=== PATIENT | male | born 1930 | race Caucasian/White ===

== ENCOUNTER 2017-04-11 11:03 | Inpatient (IN) | payer MEDICARE ==
[~2017-04-11] VITALS: Ht 175.3 cm; Wt 62.5 kg
[~2017-04-11 11:03] MED LIST: LOVA10TA PO; [UNRECOGNIZED DRUG - REMARK] PO
[2017-04-11] MEDS ORDERED: SODIUM CHLORIDE FLUSH 10ML SYR IVF ONE (11:30)
[2017-04-11] MEDS ORDERED: ERYTHROMYCIN OPHTH 0.5%, 1GM LEFTEYE ONE (11:30)
[2017-04-11] MEDS ORDERED: SODIUM CHLORIDE 0.9% 1,000ML IVBOLUS ONE (11:30)
[2017-04-11] MEDS ORDERED: DILTIAZEM 5 MG/ML, 5ML IVPush ONE (11:30)
[2017-04-11 11:58] LABS: RAPID INFLUENZA A Negative (Negative); RAPID INFLUENZA B Negative (Negative)
[2017-04-11] MEDS ORDERED: DILTIAZEM 5 MG/ML, 5ML ONE (12:27)
[2017-04-11 12:34] LABS: BASOPHILS # (AUTO) 0.02 x10^3/uL (0-0.1); BASOPHILS % (AUTO) 0 % (0-1); EOSINOPHILS # (AUTO) 0.07 x10^3/uL (0-0.4); EOSINOPHILS % (AUTO) 1 % (1-7); LYMPHOCYTES # (AUTO) 0.75 x10^3/uL (1-3.4); LYMPHOCYTES % (AUTO) 10 % (22-44); MD NO; MEAN CORPUSCULAR HEMOGLOBIN 31.8 pg (27.5-34.5); MEAN CORPUSCULAR HGB CONC 33.8 g/dL (33.2-36.2); MEAN CORPUSCULAR VOLUME 94.1 fL (81-97); MEAN PLATELET VOLUME 9.6 fL (7.4-10.4); MONOCYTES # (AUTO) 0.84 x10^3/uL (0.2-0.8); MONOCYTES % (AUTO) 11 % (2-9); NEUTROPHILS # (AUTO) 5.91 x10^3/uL (1.8-6.8); NEUTROPHILS % (AUTO) 78 % (42-75); PLATELET COUNT 122 x10^3/uL (130-400); RED BLOOD COUNT 3.26 x10^6/uL (4.38-5.82); RED CELL DISTRIBUTION WIDTH 14.1 % (9.4-14.8)
[2017-04-11] MEDS ORDERED: LOVA20TA2 PO (12:35)
[2017-04-11] MEDS ORDERED: LOSA100T6 PO (12:35)
[2017-04-11] MEDS ORDERED: CARV3.122 PO (12:37)
[2017-04-11] MEDS ORDERED: TAMS0.4C2 PO (12:37)
[2017-04-11 12:45] LABS: INTERNATIONAL NORMALIZED RATIO 1.16 (0.93-1.1); PROTHROMBIN TIME 11.9 Seconds (9.6-11.5)
[2017-04-11 12:47] LABS: ALANINE AMINOTRANSFERASE 16 U/L (12-78); ALBUMIN 2.6 g/dL (3.4-5.0); ANION GAP 12 mmol/L (5-15); CALCIUM 7.7 mg/dL (8.5-10.1); CHLORIDE 111 mmol/L (98-107); CREATININE 3.04 mg/dL (0.7-1.3)
[2017-04-11 12:51] LABS: ALKALINE PHOSPHATASE 66 U/L (45-117); BILIRUBIN,TOTAL 0.8 mg/dL (0.2-1.0); TOTAL PROTEIN 6.2 g/dL (6.4-8.2); TROPONIN I 0.018 ng/mL (0.000-0.045)
[2017-04-11] MEDS ORDERED: CEFTRIAXONE PMX 1GM/50ML 50 ML ONE ×2 (12:59→14:09)
[2017-04-11] MEDS ORDERED: SODIUM CHLORIDE 0.9% 1,000 ML IV SCH (13:34)
[2017-04-11] MEDS ORDERED: ACETAMINOPHEN 325 MG TABLET PO PRN (14:00)
[2017-04-11] MEDS ORDERED: PHARMACY MAY ADJ FOR RENAL FX MC PRN (14:00)
[2017-04-11] MEDS: CEFTRIAXONE PMX 1GM/50ML 50 ML IVPB ONE ×2 (14:07→14:45)
[2017-04-11] MEDS ORDERED: DILTIAZEM 5 MG/ML, 5ML IVPush STA (14:16)
[2017-04-11 14:33] VITALS: BP 148/69
[2017-04-11 14:35] LABS: MICROSCOPIC INDICATED
[2017-04-11 14:49] LABS: CULTURE INDICATED? NO
[2017-04-11] MEDS ORDERED: CEFTRIAXONE PMX 1GM/50ML 50 ML IVPB SCH (15:00)
[2017-04-11] MEDS: CEFTRIAXONE 1,000 MG in DEXTROSE 5% 50 ML IVPB SCH (15:01)
[2017-04-11] MEDS ORDERED: PNEUMOCOCCAL 23 VACCINE IM-VACC ONE (15:30)
[2017-04-11] MEDS: DOXYCYCLINE 100 MG in DEXTROSE 5% 250 ML IV SCH (15:50)
[2017-04-11] MEDS ORDERED: DILTIAZEM 30 MG TABLET PO SCH (16:00)
[2017-04-11] MEDS: METOPROLOL TARTRATE 25 MG TABLET PO SCH (17:15)
[2017-04-11 18:50] LABS: TROPONIN I 0.737 ng/mL (0.000-0.045)
[2017-04-11 20:09] VITALS: BP 162/84
[2017-04-11] MEDS: LOVASTATIN 20 MG TABLET PO SCH (20:15)
[2017-04-11] MEDS ORDERED: TAMSULOSIN 0.4 MG CAP.ER.24H PO SCH (21:00)
[2017-04-12 01:07] LABS: ANION GAP 8 mmol/L (5-15); CALCIUM 7.9 mg/dL (8.5-10.1); CHLORIDE 114 mmol/L (98-107); CREATININE 2.78 mg/dL (0.7-1.3)
[2017-04-12 01:09] LABS: TROPONIN I 0.964 ng/mL (0.000-0.045)
[2017-04-12] MEDS: SODIUM CHLORIDE 0.9% 1,000 ML IV SCH (02:35)
[2017-04-12] MEDS: DOXYCYCLINE 100 MG in DEXTROSE 5% 250 ML IV SCH ×2 (03:52→15:43)
[2017-04-12 03:54] VITALS: BP 170/72
[2017-04-12 06:58] VITALS: BP 192/83
[2017-04-12] MEDS: METOPROLOL TARTRATE 25 MG TABLET PO SCH ×2 (07:05→17:46)
[2017-04-12 07:38] LABS: TROPONIN I 0.772 ng/mL (0.000-0.045)
[2017-04-12] MEDS ORDERED: CARVEDILOL 3.125 MG TABLET PO SCH (09:00)
[2017-04-12] MEDS: TAMSULOSIN 0.4 MG CAP.ER.24H PO SCH (10:35)
[2017-04-12 11:16] LABS: CHLORIDE,URINE RANDOM 48 mmol/L; POTASSIUM,URINE RANDOM 27 mmol/L; SODIUM,URINE RANDOM 55 mmol/L
[2017-04-12 11:19] VITALS: BP_SYST 199; BP_SYST 205; BP_DIAS 74; BP_DIAS 81
[2017-04-12] MEDS: GUAIFENESIN 200 MG TABLET PO SCH ×3 (11:49→21:38)
[2017-04-12] MEDS ORDERED: hydrALAzine 20 MG/ML, 1ML IV ONE (12:00)
[2017-04-12] MEDS ORDERED: AMLODIPINE 5 MG TABLET PO ONE (12:30)
[2017-04-12] MEDS ORDERED: SODIUM CHLORIDE 0.9% 1,000 ML IV SCH (13:34)
[2017-04-12 14:55] VITALS: BP 197/83
[2017-04-12] MEDS: CEFTRIAXONE 1,000 MG in DEXTROSE 5% 50 ML IVPB SCH (15:15)
[2017-04-12 16:37] VITALS: BP 197/78
[2017-04-12] MEDS: hydrALAzine 20 MG/ML, 1ML IV PRN (16:38)
[2017-04-12 18:43] VITALS: BP 175/85
[2017-04-12] MEDS: LOVASTATIN 20 MG TABLET PO SCH (21:00)
[2017-04-13] VITALS (7 sets, daily range): BP systolic 165–210; BP diastolic 72–89
[2017-04-13] MEDS: hydrALAzine 20 MG/ML, 1ML IV PRN (00:53)
[2017-04-13] MEDS: SODIUM CHLORIDE 0.9% 1,000 ML IV SCH ×2 (02:30→11:37)
[2017-04-13] MEDS: DOXYCYCLINE 100 MG in DEXTROSE 5% 250 ML IV SCH ×2 (03:52→16:48)
[2017-04-13 05:25] LABS: ALBUMIN 2.7 g/dL (3.4-5.0); CALCIUM 8.4 mg/dL (8.5-10.1); CHLORIDE 111 mmol/L (98-107)
[2017-04-13 05:34] LABS: % IRON SATURATION 15 % (20-55); ALANINE AMINOTRANSFERASE 23 U/L (12-78); ALKALINE PHOSPHATASE 81 U/L (45-117); ANION GAP 10 mmol/L (5-15); BILIRUBIN,TOTAL 0.6 mg/dL (0.2-1.0); CREATINE KINASE, TOTAL 162 U/L (39-308); IRON LEVEL 36 mcg/dL (65-175); TOTAL IRON BINDING CAPACITY 243 mcg/dL (250-450); TOTAL PROTEIN 6.7 g/dL (6.4-8.2)
[2017-04-13] MEDS: GUAIFENESIN 200 MG TABLET PO SCH ×4 (06:37→22:27)
[2017-04-13] MEDS: METOPROLOL TARTRATE 25 MG TABLET PO SCH ×2 (06:38→16:47)
[2017-04-13] MEDS: TAMSULOSIN 0.4 MG CAP.ER.24H PO SCH (07:26)
[2017-04-13] MEDS ORDERED: AMLODIPINE 5 MG TABLET PO SCH ×2 (09:00→21:00)
[2017-04-13] MEDS ORDERED: ERGOCALCIFEROL 50,000 UNIT CAPSULE PO SCH (09:30)
[2017-04-13] MEDS ORDERED: AMLODIPINE 5 MG TABLET PO ONE (12:30)
[2017-04-13] MEDS: ASPIRIN 81 MG TABLET EC PO SCH (15:58)
[2017-04-13] MEDS: CEFTRIAXONE 1,000 MG in DEXTROSE 5% 50 ML IVPB SCH (15:58)
[2017-04-13] MEDS: LOVASTATIN 20 MG TABLET PO SCH (21:00)
[2017-04-13] MEDS: CARVEDILOL 6.25 MG TABLET PO SCH (22:27)
[2017-04-14] MEDS: DOXYCYCLINE 100 MG in DEXTROSE 5% 250 ML IV SCH ×2 (03:13→16:35)
[2017-04-14 03:21] VITALS: BP 174/94
[2017-04-14 05:22] LABS: ANION GAP 8 mmol/L (5-15); CALCIUM 8.4 mg/dL (8.5-10.1); CHLORIDE 108 mmol/L (98-107); CREATININE 1.84 mg/dL (0.7-1.3)
[2017-04-14] MEDS: CARVEDILOL 6.25 MG TABLET PO SCH (06:23)
[2017-04-14] MEDS: ASPIRIN 81 MG TABLET EC PO SCH (06:23)
[2017-04-14] MEDS: GUAIFENESIN 200 MG TABLET PO SCH ×4 (06:23→20:25)
[2017-04-14 08:22] VITALS: BP 188/87
[2017-04-14] MEDS: TAMSULOSIN 0.4 MG CAP.ER.24H PO SCH (08:50)
[2017-04-14] MEDS: AMLODIPINE 5 MG TABLET PO SCH (08:50)
[2017-04-14 12:36] VITALS: BP 155/83
[2017-04-14] MEDS: LOSARTAN 50MG TABLET PO SCH (12:37)
[2017-04-14 12:53] VITALS: BP 161/83
[2017-04-14] MEDS: CEFTRIAXONE 1,000 MG in DEXTROSE 5% 50 ML IVPB SCH (15:32)
[2017-04-14 18:45] VITALS: BP 135/65
[2017-04-14] MEDS: SODIUM CHLORIDE 0.9% 1,000 ML IV SCH (20:00)
[2017-04-14] MEDS: LOVASTATIN 20 MG TABLET PO SCH (20:25)
[2017-04-15 02:00] VITALS: BP 164/86
[2017-04-15] MEDS: DOXYCYCLINE 100 MG in DEXTROSE 5% 250 ML IV SCH (05:00)
[2017-04-15] MEDS ORDERED: AMOX1TAB64 PO (06:45)
[2017-04-15] MEDS ORDERED: ASPI-621 PO (06:45)
[2017-04-15] MEDS ORDERED: ERGO500017 PO (06:45)
[2017-04-15] MEDS ORDERED: AMLO5TAB2 PO (06:45)
[2017-04-15] MEDS ORDERED: LOVA20TA2 PO (06:45)
[2017-04-15] MEDS ORDERED: AMOXICILLIN/CLAV 500-125MG TABLET PO SCH (07:00)
[2017-04-15] MEDS ORDERED: AMOX1TAB61 PO (07:49)
[2017-04-15 08:43] VITALS: BP 154/78
[2017-04-15] MEDS ORDERED: DOXYCYCLINE 100MG TABLET PO SCH (09:00)
[2017-04-15] MEDS: LOSARTAN 50MG TABLET PO SCH (09:39)
[2017-04-15] MEDS: AMLODIPINE 5 MG TABLET PO SCH (09:40)
[2017-04-15] MEDS: ASPIRIN 81 MG TABLET EC PO SCH (09:40)
[2017-04-15] MEDS: TAMSULOSIN 0.4 MG CAP.ER.24H PO SCH (09:40)
[2017-04-15] MEDS: GUAIFENESIN 200 MG TABLET PO SCH (09:40)
== END 2017-04-15 12:38 | disposition home or self-care (01) | DRG 682 ==
LOC: EDSEX 11:03 → EDBD 11:03 → MERGE 11:03 → ED 13:44 → 5SO 14:38
PROVIDERS: ADMIT Family Medicine; ATTEND Family Medicine
DX: N17.9 Acute kidney failure, unspecified (principal); E43 Unspecified severe protein-calorie malnutrition; J15.9 Unspecified bacterial pneumonia; E87.2 Acidosis; I48.91 Unspecified atrial fibrillation; D64.9 Anemia, unspecified; E86.0 Dehydration; I69.320 Aphasia following cerebral infarction; W19.XXXA Unspecified fall, initial encounter; E55.9 Vitamin D deficiency, unspecified; E78.5 Hyperlipidemia, unspecified; H10.32 Unspecified acute conjunctivitis, left eye; I12.9 Hypertensive chronic kidney disease with stage 1 through stage 4 chronic kidney disease, or unspecified chronic kidney disease; I25.10 Atherosclerotic heart disease of native coronary artery without angina pectoris; M10.9 Gout, unspecified; N18.9 Chronic kidney disease, unspecified; N40.0 Benign prostatic hyperplasia without lower urinary tract symptoms; R09.02 Hypoxemia; S00.81XA Abrasion of other part of head, initial encounter; Y92.009 Unspecified place in unspecified non-institutional (private) residence as the place of occurrence of the external cause; Z79.899 Other long term (current) drug therapy; Z79.82 Long term (current) use of aspirin; Z68.20 Body mass index [BMI] 20.0-20.9, adult
CPT/HCPCS: 36415; 70450; 71010; 76770; 80048; 80053; 81001; 82306; 82436; 82550; 82728; 83540; 83550; 83605; 83735; 83970; 84100; 84133; 84300; 84484; 85025; 85610; 87040; 87400; 90732; 93005; 93306; 96361; 96374; J0696; J7060; J0360; J7030

== ENCOUNTER 2019-04-08 17:01 | Inpatient (IN) | payer MEDICARE ==
[~2019-04-08] VITALS: Ht 170.2 cm; Wt 63.5 kg
[~2019-04-08 17:01] MED LIST changes: +AMLO-150 PO; +AMOX1TAB61 PO; +AMOX1TAB64 PO; +ASPI81TA45 PO; +CARV3.122 PO; +ERGO500017 PO; +LOSA100T14 PO; +LOVA20TA2 PO; +TAMS0.4C2 PO
[2019-04-08] MEDS ORDERED: SODIUM CHLORIDE FLUSH 10ML SYR IVF ONE (18:00)
--- NOTE | 2019-04-08 18:07 | NUR ---
PT CAME IN REPORTING THAT HE FELL YESTERDAY AT HOME AND THE PAIN HAS GOTTEN WORSE TODAY. COMPLAINED OF NECK PAIN AND HAS BEEN PLACED IN A C COLLAR. IV STARTED. DAUGHTER IS BEDSIDE. PT HAS HX OF STROKE AND HTN.
[2019-04-08 18:10] LABS: BASOPHILS # (AUTO) 0.01 x10^3/uL (0-0.1); BASOPHILS % (AUTO) 0 % (0-1); EOSINOPHILS # (AUTO) 0.09 x10^3/uL (0-0.4); EOSINOPHILS % (AUTO) 1 % (1-7); LYMPHOCYTES # (AUTO) 1.24 x10^3/uL (1-3.4); LYMPHOCYTES % (AUTO) 14 % (22-44); MD NO; MEAN CORPUSCULAR HEMOGLOBIN 31.6 pg (27.5-34.5); MEAN CORPUSCULAR HGB CONC 31.9 g/dL (33.2-36.2); MEAN CORPUSCULAR VOLUME 98.9 fL (81-97); MEAN PLATELET VOLUME 8.7 fL (7.4-10.4); MONOCYTES # (AUTO) 0.72 x10^3/uL (0.2-0.8); MONOCYTES % (AUTO) 8 % (2-9); NEUTROPHILS # (AUTO) 6.63 x10^3/uL (1.8-6.8); NEUTROPHILS % (AUTO) 76 % (42-75); PLATELET COUNT 194 x10^3/uL (130-400); RED BLOOD COUNT 3.53 x10^6/uL (4.38-5.82); RED CELL DISTRIBUTION WIDTH 13.5 % (9.4-14.8)
[2019-04-08 18:21] LABS: INTERNATIONAL NORMALIZED RATIO 1.1 (0.93-1.1); PROTHROMBIN TIME 11.5 Seconds (9.6-11.5)
[2019-04-08 18:23] LABS: ALANINE AMINOTRANSFERASE 67 U/L (12-78); ALBUMIN 3.4 g/dL (3.4-5.0); ANION GAP 8 mmol/L (5-15); CHLORIDE 109 mmol/L (98-107); CREATININE 2.37 mg/dL (0.7-1.3)
[2019-04-08 18:26] LABS: ALKALINE PHOSPHATASE 98 U/L (45-117); BILIRUBIN,TOTAL 0.8 mg/dL (0.2-1.0); CREATINE KINASE, TOTAL 149 U/L (39-308); TOTAL PROTEIN 7.7 g/dL (6.4-8.2)
--- NOTE | 2019-04-08 18:39 | NUR ---
PT AT CT
[2019-04-08] MEDS ORDERED: SODIUM CHLORIDE 0.9% 1,000ML IVBOLUS ONE (19:30)
[2019-04-08 19:42] LABS: MICROSCOPIC AUTO
[2019-04-08 19:54] LABS: CULTURE INDICATED? NO
--- NOTE | 2019-04-08 20:06 | NUR ---
RIVKA RICHARDSON, TOOK PT FOR A "ROAD TEST" AND DETEREMINED PT HAS UNSTEADY GAIT AND IS A HIGH FALL RISK. DR. ZUNIGA WANTS HIM TO BE ADMITTED TONIGHT.
[2019-04-08] MEDS ORDERED: NS + 20MEQ KCL 1,000 ML IV SCH (20:18)
[2019-04-08] MEDS ORDERED: ONDANSETRON 2MG/ML, 2ML IVPush PRN (20:30)
[2019-04-08] MEDS ORDERED: morphine SULFATE 10 MG/ML, 1ML IVPush PRN (20:30)
[2019-04-08] MEDS ORDERED: CYCLOBENZAPRINE 10 MG TABLET PO PRN (20:30)
[2019-04-08] MEDS ORDERED: ENALAPRILAT 1.25 MG/ML, 2ML IVPush PRN (20:30)
[2019-04-08] MEDS ORDERED: POLYETHYLENE GLYCOL 17 GM PACKET PO PRN (20:30)
[2019-04-08] MEDS ORDERED: HYDROcodone/APAP 5/325 TABLET PO PRN (20:30)
[2019-04-08] MEDS ORDERED: ONDANSETRON ODT 4 MG PO PRN (20:30)
[2019-04-08] MEDS ORDERED: ACETAMINOPHEN 325 MG TABLET PO PRN (20:30)
[2019-04-08] MEDS ORDERED: DOCUSATE 100 MG CAPSULE PO PRN (20:30)
[2019-04-08] MEDS ORDERED: LABETALOL 5MG/ML, 20ML IVPush PRN (20:30)
[2019-04-08] MEDS ORDERED: LOSA1TAB22 PO (20:47)
[2019-04-08] MEDS ORDERED: AMLO10TA8 PO (20:47)
--- NOTE | 2019-04-08 20:51 | NUR ---
PT REPORTS "NO PAIN"
[2019-04-08] MEDS: HEPARIN 5,000 UNITS/ML, 1ML SQ SCH (23:21)
[2019-04-08] MEDS: NS + 20MEQ KCL 1,000 ML IV SCH (23:21)
[2019-04-09 02:00] VITALS: BP 168/59
[2019-04-09 05:42] LABS: BASOPHILS # (AUTO) 0.01 x10^3/uL (0-0.1); BASOPHILS % (AUTO) 0 % (0-1); EOSINOPHILS % (AUTO) 2 % (1-7); LYMPHOCYTES # (AUTO) 1.41 x10^3/uL (1-3.4); LYMPHOCYTES % (AUTO) 23 % (22-44); MD NO; MEAN CORPUSCULAR HEMOGLOBIN 31.9 pg (27.5-34.5); MEAN CORPUSCULAR HGB CONC 32.4 g/dL (33.2-36.2); MEAN CORPUSCULAR VOLUME 98.7 fL (81-97); MEAN PLATELET VOLUME 9.1 fL (7.4-10.4); MONOCYTES # (AUTO) 0.55 x10^3/uL (0.2-0.8); MONOCYTES % (AUTO) 9 % (2-9); NEUTROPHILS # (AUTO) 4.15 x10^3/uL (1.8-6.8); NEUTROPHILS % (AUTO) 67 % (42-75); PLATELET COUNT 162 x10^3/uL (130-400); RED BLOOD COUNT 3.15 x10^6/uL (4.38-5.82); RED CELL DISTRIBUTION WIDTH 13.3 % (9.4-14.8)
[2019-04-09 05:49] LABS: ANION GAP 5 mmol/L (5-15); CALCIUM 8.9 mg/dL (8.5-10.1); CHLORIDE 114 mmol/L (98-107); CREATININE 1.86 mg/dL (0.7-1.3)
[2019-04-09] MEDS: HEPARIN 5,000 UNITS/ML, 1ML SQ SCH ×3 (06:24→23:53)
[2019-04-09 07:28] VITALS: BP 176/70
[2019-04-09] MEDS ORDERED: LOSARTAN 50MG TABLET PO SCH (09:00)
[2019-04-09] MEDS: AMLODIPINE 10 MG TAB PO SCH (10:00)
[2019-04-09] MEDS: HYDROCHLOROTHIAZIDE 25 MG TABLET PO SCH (10:00)
[2019-04-09] MEDS: NS + 20MEQ KCL 1,000 ML IV SCH (11:23)
[2019-04-09 11:49] VITALS: BP 154/79
[2019-04-09] MEDS: LOSARTAN 25MG TABLET PO SCH (11:51)
[2019-04-09 13:25] VITALS: BP 154/88
[2019-04-09 20:03] VITALS: BP 130/64
[2019-04-09] MEDS: LOVASTATIN 20 MG TABLET PO SCH (21:47)
[2019-04-09] MEDS: TAMSULOSIN 0.4 MG CAP.ER.24H PO SCH (21:47)
[2019-04-10] MEDS: NS + 20MEQ KCL 1,000 ML IV SCH (00:18)
[2019-04-10 02:06] VITALS: BP 167/84
[2019-04-10 05:24] LABS: BASOPHILS % (AUTO) 0 % (0-1); EOSINOPHILS # (AUTO) 0.15 x10^3/uL (0-0.4); EOSINOPHILS % (AUTO) 2 % (1-7); LYMPHOCYTES # (AUTO) 1.28 x10^3/uL (1-3.4); LYMPHOCYTES % (AUTO) 14 % (22-44); MD NO; MEAN CORPUSCULAR HEMOGLOBIN 30.9 pg (27.5-34.5); MEAN CORPUSCULAR HGB CONC 32.1 g/dL (33.2-36.2); MEAN CORPUSCULAR VOLUME 96.4 fL (81-97); MONOCYTES # (AUTO) 0.88 x10^3/uL (0.2-0.8); MONOCYTES % (AUTO) 10 % (2-9); NEUTROPHILS # (AUTO) 6.75 x10^3/uL (1.8-6.8); NEUTROPHILS % (AUTO) 75 % (42-75); PLATELET COUNT 164 x10^3/uL (130-400); RED CELL DISTRIBUTION WIDTH 13.3 % (9.4-14.8)
[2019-04-10 05:29] LABS: ANION GAP 7 mmol/L (5-15); CALCIUM 8.6 mg/dL (8.5-10.1); CHLORIDE 112 mmol/L (98-107)
[2019-04-10 05:31] LABS: CREATININE 1.87 mg/dL (0.7-1.3)
[2019-04-10 08:19] VITALS: BP 115/65
[2019-04-10] MEDS ORDERED: LOSARTAN 25MG TABLET PO SCH (09:00)
[2019-04-10] MEDS: LOSARTAN 25MG TABLET PO SCH (09:02)
[2019-04-10] MEDS: HEPARIN 5,000 UNITS/ML, 1ML SQ SCH ×3 (09:02→23:30)
[2019-04-10] MEDS: AMLODIPINE 10 MG TAB PO SCH (09:03)
[2019-04-10] MEDS: HYDROCHLOROTHIAZIDE 25 MG TABLET PO SCH (09:03)
[2019-04-10] MEDS ORDERED: ACET325T26 PO (11:09)
[2019-04-10 12:00] VITALS: BP 154/80
[2019-04-10 18:28] VITALS: BP 96/59
[2019-04-10 20:29] VITALS: BP 158/76
[2019-04-10] MEDS: TAMSULOSIN 0.4 MG CAP.ER.24H PO SCH (20:31)
[2019-04-10] MEDS: LOVASTATIN 20 MG TABLET PO SCH (20:31)
[2019-04-11 00:41] VITALS: BP 130/70
[2019-04-11 07:10] VITALS: BP 105/66
[2019-04-11 07:16] VITALS: BP 137/69
[2019-04-11] MEDS: HEPARIN 5,000 UNITS/ML, 1ML SQ SCH (08:06)
[2019-04-11] MEDS: AMLODIPINE 10 MG TAB PO SCH (08:06)
[2019-04-11] MEDS: HYDROCHLOROTHIAZIDE 25 MG TABLET PO SCH (08:06)
[2019-04-11] MEDS: LOSARTAN 25MG TABLET PO SCH (08:06)
== END 2019-04-11 13:20 | DRG 184 ==
LOC: ED 18:22 → EDIP 20:19 → 4NE 21:20
PROVIDERS: ADMIT Family Medicine; ATTEND Family Medicine
DX: S22.41XA Multiple fractures of ribs, right side, initial encounter for closed fracture (principal); R47.01 Aphasia; N17.9 Acute kidney failure, unspecified; D64.9 Anemia, unspecified; E78.5 Hyperlipidemia, unspecified; E86.0 Dehydration; I12.9 Hypertensive chronic kidney disease with stage 1 through stage 4 chronic kidney disease, or unspecified chronic kidney disease; N18.9 Chronic kidney disease, unspecified; N40.0 Benign prostatic hyperplasia without lower urinary tract symptoms; J32.9 Chronic sinusitis, unspecified; Z66 Do not resuscitate; W18.30XA Fall on same level, unspecified, initial encounter; Y92.009 Unspecified place in unspecified non-institutional (private) residence as the place of occurrence of the external cause; Y93.89 Activity, other specified; Y99.8 Other external cause status; I69.320 Aphasia following cerebral infarction
CPT/HCPCS: 36415; 70450; 71045; 71250; 72125; 72131; 72170; 80048; 80053; 81001; 82550; 85025; 85610; 99285; G0378; J1644; J3480; J7030

== ENCOUNTER 2019-06-09 14:31 | Emergency (ER) | payer MEDICARE ==
[~2019-06-09] VITALS: Ht 175.3 cm; Wt 70.0 kg
[~2019-06-09 14:31] MED LIST changes: +ACET325T26 PO; +AMLO10TA8 PO; +LOSA1TAB22 PO
--- NOTE | 2019-06-09 14:53 | NUR ---
PT BIB [facility] AFTER HH WOUND NURSE NOTED A LOW BP IN THE 80'S. UPON [facility] ARRIVAL PT BP 130'S OVER 70'S, BP REMAINED STEADY THROUGH TRANSPORT. WOUND CARE NURSE ALSO EXPRESSES CONCERN OVER PRESSURE WOUNDS ON BILATERAL HEELS, THESE WOUNDS ARE UNDER HER WOUND CARE TREATMENT VIA HH AT THIS TIME, DRESSED AND COVERED UPON ARRIVAL. SCANT DRAINAGE NOTED, NO S/S OF INFECTION. SKIN SWEEP PERFORMED, NO OTHER SKIN ISSUES NOTED. PT ALERT, CALM AND COOPERATIVE. FAMILY IN BOUND, INCLUDING POA. CALL LIGHT IN REACH, PT PROVIDED WITH WATER AFTER VERBAL OK WITH PROVIDER. DENIES ANY FURTHER NEEDS AT THIS TIME.
[2019-06-09 15:12] LABS: BASOPHILS % (AUTO) 0 % (0-1); EOSINOPHILS # (AUTO) 0.43 x10^3/uL (0-0.4); EOSINOPHILS % (AUTO) 4 % (1-7); LYMPHOCYTES # (AUTO) 1.08 x10^3/uL (1-3.4); LYMPHOCYTES % (AUTO) 10 % (22-44); MD NO; MEAN CORPUSCULAR HEMOGLOBIN 30.9 pg (27.5-34.5); MEAN CORPUSCULAR HGB CONC 32.8 g/dL (33.2-36.2); MEAN PLATELET VOLUME 7.9 fL (7.4-10.4); MONOCYTES # (AUTO) 0.47 x10^3/uL (0.2-0.8); MONOCYTES % (AUTO) 5 % (2-9); NEUTROPHILS % (AUTO) 81 % (42-75); PLATELET COUNT 252 x10^3/uL (130-400); RED BLOOD COUNT 2.91 x10^6/uL (4.38-5.82); RED CELL DISTRIBUTION WIDTH 14.5 % (9.4-14.8)
--- NOTE | 2019-06-09 15:14 | NUR ---
REPORT FROM [place] TINEO.
[2019-06-09 15:19] LABS: ANION GAP 6 mmol/L (5-15); CALCIUM 8.7 mg/dL (8.5-10.1); CHLORIDE 108 mmol/L (98-107); CREATININE 2.48 mg/dL (0.7-1.3)
[2019-06-09] MEDS ORDERED: SODIUM CHLORIDE FLUSH 10ML SYR IVF ONE (15:30)
[2019-06-09] MEDS ORDERED: SODIUM CHLORIDE 0.9% 1,000ML IVBOLUS ONE (15:30)
--- NOTE | 2019-06-09 15:34 | NUR ---
PT REPOSITIONED, SHEETS CHANGED, LEGS PADDED. PLAN FOR LITER NS BOLUS. AWAITING FAMILY. PT ALERT, ORIENTED TO SELF/PLACE/TIME, SOMEWHAT RAMBLING ON SITUATION. HEELS PADDED W/ FOAM (CAME IN WITH). BONY AREAS PADDED. CALL AMANDA IN REACH, FALL PRECS.
--- NOTE | 2019-06-09 16:33 | NUR ---
daughter melody in room. clinical screen done. lorena notified of family presence. plan liter bolus then dc. as
--- NOTE | 2019-06-09 16:44 | NUR ---
lorena was in room. case mgmt in room at moment plan pending. as
--- NOTE | 2019-06-09 17:09 | NUR ---
TO ORDER HOSPICE. 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 AWAITING RIDE.
--- NOTE | 2019-06-09 17:53 | NUR ---
PT TO BE DC VIA AMBULANCE COMING AT 181.
[2019-06-09 17:54] VITALS: BP 146/77
== END 2019-06-09 18:29 | disposition home or self-care (01) ==
LOC: ED 15:14
DX: R62.7 Adult failure to thrive (principal); D53.9 Nutritional anemia, unspecified; E86.0 Dehydration; Z68.22 Body mass index [BMI] 22.0-22.9, adult; I10 Essential (primary) hypertension; I48.91 Unspecified atrial fibrillation; E78.5 Hyperlipidemia, unspecified; Z86.73 Personal history of transient ischemic attack (TIA), and cerebral infarction without residual deficits
CPT/HCPCS: 36415; 80048; 82040; 85025; 96360; 96361; 99283; J7030

== ENCOUNTER 2019-06-13 18:46 | Inpatient (IN) | payer MEDICARE ==
[~2019-06-13] VITALS: Ht 170.2 cm; Wt 62.3 kg
[2019-06-13] MEDS ORDERED: VANCOMYCIN PER PHARMACY MC ONE (19:30)
[2019-06-13] MEDS ORDERED: CEFTRIAXONE PMX 1GM/50ML 50 ML IVPB ONE (19:30)
[2019-06-13] MEDS ORDERED: CEFTRIAXONE PMX 1GM/50ML 50 ML ONE (19:48)
[2019-06-13] MEDS ORDERED: VANCOMYCIN 1,100 MG in SODIUM CHLORIDE 0.9% 250 ML IV ONE (20:00)
[2019-06-13 20:05] LABS: BASOPHILS # (AUTO) 0.03 x10^3/uL (0-0.1); BASOPHILS % (AUTO) 1 % (0-1); EOSINOPHILS # (AUTO) 0.47 x10^3/uL (0-0.4); EOSINOPHILS % (AUTO) 7 % (1-7); LYMPHOCYTES % (AUTO) 20 % (22-44); MD NO; MEAN CORPUSCULAR HEMOGLOBIN 30.9 pg (27.5-34.5); MEAN CORPUSCULAR HGB CONC 32.6 g/dL (33.2-36.2); MEAN CORPUSCULAR VOLUME 94.7 fL (81-97); MEAN PLATELET VOLUME 8.2 fL (7.4-10.4); MONOCYTES % (AUTO) 6 % (2-9); NEUTROPHILS # (AUTO) 4.54 x10^3/uL (1.8-6.8); NEUTROPHILS % (AUTO) 66 % (42-75); PLATELET COUNT 272 x10^3/uL (130-400); RED CELL DISTRIBUTION WIDTH 14.6 % (9.4-14.8)
[2019-06-13 20:15] LABS: ALANINE AMINOTRANSFERASE 20 U/L (12-78); ALBUMIN 2.2 g/dL (3.4-5.0); ANION GAP 6 mmol/L (5-15); CALCIUM 8.8 mg/dL (8.5-10.1); CHLORIDE 106 mmol/L (98-107)
[2019-06-13 20:17] LABS: ALKALINE PHOSPHATASE 96 U/L (45-117); BILIRUBIN,TOTAL 0.3 mg/dL (0.2-1.0); CREATININE 2.11 mg/dL (0.7-1.3); TOTAL PROTEIN 6.4 g/dL (6.4-8.2)
[2019-06-13] MEDS ORDERED: SODIUM CHLORIDE 0.9% 500 ML IV ONE (20:35)
[2019-06-13] MEDS ORDERED: POLYETHYLENE GLYCOL 17 GM PACKET PO PRN (21:00)
[2019-06-13] MEDS ORDERED: LABETALOL 5MG/ML, 20ML IVPush PRN (21:00)
[2019-06-13] MEDS ORDERED: DOCUSATE 100 MG CAPSULE PO PRN (21:00)
[2019-06-13] MEDS ORDERED: ONDANSETRON 2MG/ML, 2ML IVPush PRN (21:00)
[2019-06-13] MEDS ORDERED: morphine SULFATE 10 MG/ML, 1ML IVPush PRN (21:00)
[2019-06-13] MEDS ORDERED: ONDANSETRON ODT 4 MG PO PRN (21:00)
[2019-06-13] MEDS ORDERED: SODIUM CHLORIDE FLUSH 10ML SYR IVF PRN (21:00)
[2019-06-13] MEDS ORDERED: ACETAMINOPHEN 325 MG TABLET PO PRN (21:00)
[2019-06-13] MEDS ORDERED: VANCOMYCIN PER PHARMACY MC PRN (21:00)
[2019-06-13 21:54] VITALS: BP 180/88
[2019-06-13] MEDS ORDERED: PHARMACOKINETIC MONITORING MC PRN (22:00)
[2019-06-13] MEDS ORDERED: PHARMACOKINETIC CONSULTATION MC ONE (22:00)
[2019-06-13] MEDS: hydrALAzine 20 MG/ML, 1ML IVPush PRN (22:18)
[2019-06-13] MEDS: HEPARIN 5,000 UNITS/ML, 1ML SQ SCH (22:18)
[2019-06-13] MEDS: SODIUM CHLORIDE 0.9% 1,000 ML IV SCH (22:19)
[2019-06-14 00:32] VITALS: BP 159/88
[2019-06-14] MEDS: HEPARIN 5,000 UNITS/ML, 1ML SQ SCH ×3 (05:40→22:21)
[2019-06-14 05:44] LABS: HCT (SEDRATE) 26.7 % (39.2-51.8)
[2019-06-14 05:55] LABS: ANION GAP 8 mmol/L (5-15); CALCIUM 8.4 mg/dL (8.5-10.1); CHLORIDE 110 mmol/L (98-107)
[2019-06-14 05:59] LABS: ALANINE AMINOTRANSFERASE 19 U/L (12-78); ALKALINE PHOSPHATASE 79 U/L (45-117); BILIRUBIN,TOTAL 0.6 mg/dL (0.2-1.0); CREATININE 1.89 mg/dL (0.7-1.3); TOTAL PROTEIN 5.6 g/dL (6.4-8.2)
[2019-06-14 06:00] LABS: MEAN CORPUSCULAR HEMOGLOBIN 30.6 pg (27.5-34.5); MEAN CORPUSCULAR HGB CONC 32.9 g/dL (33.2-36.2); MEAN CORPUSCULAR VOLUME 93.2 fL (81-97); MEAN PLATELET VOLUME 8.6 fL (7.4-10.4); PLATELET COUNT 230 x10^3/uL (130-400); RED BLOOD COUNT 2.87 x10^6/uL (4.38-5.82); RED CELL DISTRIBUTION WIDTH 14.5 % (9.4-14.8)
[2019-06-14 06:23] LABS: MD YES
[2019-06-14 06:27] LABS: BASOS#(MANUAL) 0.09 x10^3/uL (0-0.1); BASOS% (MANUAL) 1 % (0-1); EOS#(MANUAL) 0.36 x10^3/uL (0.0-0.4); EOS% (MANUAL) 4 % (1-7); LYMPH#(MANUAL) 1.07 x10^3/uL (1-3.4); LYMPHS% (MANUAL) 12 % (22-44); MONOS#(MANUAL) 0.45 x10^3/uL (0.3-2.7); MONOS% (MANUAL) 5 % (2-9); SEG#(MANUAL) 6.94 x10^3/uL (1.8-6.8); SEGS% (MANUAL) 78 % (42-75)
[2019-06-14 06:31] LABS: <PLATELET ESTIMATE> ADEQUATE; <PLT MORPHOLOGY> NORMAL PLT MORPH; <RBC MORPHOLOGY> NORMAL
[2019-06-14] MEDS ORDERED: POTASSIUM CHLORIDE 20 MEQ TAB.ER.PRT PO ONE (07:00)
[2019-06-14 07:29] VITALS: BP 138/87
[2019-06-14] MEDS: AMLODIPINE 5 MG TABLET PO SCH (08:04)
[2019-06-14] MEDS: HYDROCHLOROTHIAZIDE 25 MG TABLET PO SCH (08:04)
[2019-06-14] MEDS: LOSARTAN 100 MG TAB PO SCH (08:04)
[2019-06-14] MEDS: TAMSULOSIN 0.4 MG CAP.ER.24H PO SCH (08:04)
[2019-06-14] MEDS: SODIUM CHLORIDE 0.9% 1,000 ML IV SCH (08:05)
[2019-06-14] MEDS: LOVASTATIN 20 MG TABLET PO SCH (08:05)
[2019-06-14] MEDS ORDERED: INSULIN NPH HUMAN 100 UNIT/ML, 3ML VIAL SQ-INSULIN SCH (11:00)
--- NOTE | 2019-06-14 11:55 | NUR ---
LEE ivey. Pt will benefit from SNF for continuance of therapy Addendum: 06/14/19 at 1155 by LILIA KIRK OT Amended: Links added.
[2019-06-14] MEDS: AMPICILLIN/SULBACTAM 1,500 MG in SODIUM CHLORIDE 0.9% 50 ML IV SCH ×2 (14:12→19:05)
[2019-06-14 14:20] VITALS: BP 133/72
--- NOTE | 2019-06-14 16:23 | NUR ---
REC SNF WITH HEALTH ANALYST Addendum: 06/14/19 at [address] Amended: Links added.
[2019-06-14 19:21] VITALS: BP 166/81
[2019-06-14] MEDS ORDERED: VANCOMYCIN 1,300 MG in SODIUM CHLORIDE 0.9% 250 ML IV SCH (20:00)
[2019-06-14] MEDS ORDERED: CEFTRIAXONE PMX 2GM/50ML 50 ML IV SCH (21:00)
[2019-06-15 01:04] VITALS: BP 173/84
[2019-06-15] MEDS: AMPICILLIN/SULBACTAM 1,500 MG in SODIUM CHLORIDE 0.9% 50 ML IV SCH ×2 (01:13→06:33)
[2019-06-15] MEDS: hydrALAzine 20 MG/ML, 1ML IVPush PRN (01:13)
[2019-06-15] MEDS: HEPARIN 5,000 UNITS/ML, 1ML SQ SCH ×2 (06:33→14:05)
[2019-06-15 06:52] VITALS: BP 179/90
[2019-06-15] MEDS: LOVASTATIN 20 MG TABLET PO SCH (08:07)
[2019-06-15] MEDS: TAMSULOSIN 0.4 MG CAP.ER.24H PO SCH (08:08)
[2019-06-15] MEDS: AMLODIPINE 5 MG TABLET PO SCH (08:08)
[2019-06-15] MEDS: LOSARTAN 100 MG TAB PO SCH (08:08)
[2019-06-15] MEDS: HYDROCHLOROTHIAZIDE 25 MG TABLET PO SCH (08:08)
[2019-06-15] MEDS ORDERED: DOXYCYCLINE 100MG TABLET PO SCH (12:30)
[2019-06-15 14:06] VITALS: BP 159/83
[2019-06-15] MEDS ORDERED: DOXY100T PO (14:44)
== END 2019-06-15 17:16 | disposition hospice, inpatient (51) | DRG 539 ==
LOC: ED 20:53 → EDIP 21:28 → 3N 21:45
PROVIDERS: ADMIT Family Medicine; ATTEND Family Medicine
DX: M86.172 Other acute osteomyelitis, left ankle and foot (principal); L89.624 Pressure ulcer of left heel, stage 4; L89.614 Pressure ulcer of right heel, stage 4; J18.9 Pneumonia, unspecified organism; N17.9 Acute kidney failure, unspecified; D63.1 Anemia in chronic kidney disease; E78.5 Hyperlipidemia, unspecified; E86.0 Dehydration; I12.9 Hypertensive chronic kidney disease with stage 1 through stage 4 chronic kidney disease, or unspecified chronic kidney disease; I25.10 Atherosclerotic heart disease of native coronary artery without angina pectoris; I48.91 Unspecified atrial fibrillation; M86.672 Other chronic osteomyelitis, left ankle and foot; N18.3 Chronic kidney disease, stage 3 (moderate); N40.0 Benign prostatic hyperplasia without lower urinary tract symptoms; Z66 Do not resuscitate; R62.7 Adult failure to thrive; Z68.21 Body mass index [BMI] 21.0-21.9, adult; Z51.5 Encounter for palliative care; Z74.01 Bed confinement status; Z82.3 Family history of stroke; Z82.49 Family history of ischemic heart disease and other diseases of the circulatory system; Z86.73 Personal history of transient ischemic attack (TIA), and cerebral infarction without residual deficits; Z91.81 History of falling
CPT/HCPCS: 36415; 71045; 80053; 83605; 84145; 85025; 85651; 87040; 93005; G0378; J0696; J1644; J1815; J3370; J0295; J0360; J7030; J7050